=== PATIENT | male | born 1935 | race Caucasian/White ===

== ENCOUNTER 2016-04-12 10:43 | Emergency (ER) | payer OTHER, MEDICARE ==
[2016-04-12 11:09] VITALS: TEMP 97.8; BMI 25.3
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
[2016-04-12 13:40] VITALS: BP 117/69; PULSE 82
== END 2016-04-12 13:39 | disposition home or self-care (01) ==
LOC: ED 10:43 → EDMC 13:39
DX: S92.901A Unspecified fracture of right foot, initial encounter for closed fracture (principal); V49.60XA Unspecified car occupant injured in collision with unspecified motor vehicles in traffic accident, initial encounter; Y93.9 Activity, unspecified
CPT/HCPCS: 29515; 99282